=== PATIENT | female | born 1985 | race Caucasian/White ===

== ENCOUNTER 2018-06-25 18:57 | Emergency (ER) | payer OTHER ==
[~2018-06-25] VITALS: Wt 122.5 kg
[~2018-06-25 18:57] MED LIST: CELEXA10 MG PO; FLEXERIL10 MG PO; KEFLEX500 MG PO; LEVOTHYROXIN0.025 MG PO; NAPROSYN500 MG PO; PREDNICOT20 MG PO
== END 2018-06-25 21:12 | disposition home or self-care (01) ==
LOC: ED 18:57
DX: S90.32XA Contusion of left foot, initial encounter (principal); I10 Essential (primary) hypertension; Z91.040 Latex allergy status; W20.8XXA Other cause of strike by thrown, projected or falling object, initial encounter; Y93.89 Activity, other specified; Y92.89 Other specified places as the place of occurrence of the external cause; Y99.8 Other external cause status

== ENCOUNTER → 2024-08-23 | Outpatient (CLI) | payer BC | LOC: US 08:25 | PROVIDERS: ATTEND Nurse Practitioner | DX: M79.622 Pain in left upper arm (principal) ==